=== PATIENT | male | born 1955 | race African-American/Black ===

== ENCOUNTER 2022-04-16 12:11 | Emergency (ER) | payer OTHER, SELFPAY ==
[2022-04-16] VITALS (18 sets, daily range): BP systolic 152–247; BP diastolic 61–165; PULSE 50–75; RESP 15–21; TEMP 36.4; O2SAT 99–100
--- NOTE | ~2022-04-16 | CT_ITS ---
EXAMINATION: CTA chest abdomen pelvis DATE: 04/16/2022 12:51 INDICATION: Back and abdominal pain. TECHNIQUE: Computed tomographic angiography (CTA) of the chest and abdomen was performed with 100 cc of Omnipaque-350 intravenous contrast. Additional 3D reconstructions utilizing rotating maximum inten sity projection (MIP) were performed. Automated exposure control and iterative reconstruction [employer] were employed. The dose-length product was 1850.17 mGy-cm. COMPARISON: None FINDINGS: Chest: Incidental azygos lobe and fissure at the medial right upper lung. Respiratory motion in both lungs w ith mild dependent atelectasis. No pneumonia, pulmonary edema, pleural effusion or pneumothorax. Mild cardiomegaly. Atherosclerotic coronary artery calcific lesion. No pericardial effusion. No pathologi zuleima enlarged thoracic lymphadenopathy. Mild aneurysmal dilation of the ascending thoracic aorta wh ich measures up to 4.2 cm maximal diameter. The aorta tapers to 4.1 cm at the distal side of the aort ic arch and further tapering to 3.8 cm in the mid thoracic aorta. There is a type B aortic dissection beginning along the distal margin of the takeoff of the left subclavian artery and which extends int o the abdomen. Mild thoracic dextrocurvature with mild spondylosis and bridging osteophytes at multip le levels consistent with diffuse idiopathic skeletal hyperostosis (DISH). Reverse right total should er arthroplasty. Abdomen and pelvis: The aortic dissection extends throughout the abdominal aorta and into the bilateral external and inte rnal iliac arteries as well as the left renal artery. Large fenestration with discontinuities of the intimal flap at the level of the celiac axis and superior mesenteric arteries. There is thrombosis of what appears to be the true lumen of the left renal artery with tiny patent false lumen which contin ues to supply portions of the left kidney. There is however extensive infarct of the left kidney whic h appears to involve approximately two thirds of the renal parenchymal volume. Both the celiac axis a nd superior mesenteric artery are well opacified with contrast and arise from the false lumen. The ri ght renal artery which is also widely patent and arises from the true lumen. There is segmental compl ete thrombosis of approximately 2.5 cm length of the proximal left internal iliac artery which subseq uently reconstitutes via collaterals. Liver, gallbladder, spleen, pancreas and bilateral adrenal glands are normal. 1.1 cm right renal cyst . There are few scattered colonic diverticula without adjacent inflammatory change to suggest diverti culitis. No bowel obstruction. Bladder is normal. Prostatomegaly measuring 6.3 x 3.9 cm. No free intr aperitoneal gas or fluid. No pathologically enlarged abdominal or pelvic lymphadenopathy. Mild to mod erate lumbar spondylosis. Ankylosis at the bilateral sacroiliac joints. IMPRESSION: 1. Type B aortic dissection arising at the distal arch following the takeoff of the left subclavian a rtery and extending inferiorly into the bilateral external and internal iliac arteries. 2. Dissection extends into the left renal artery which is partially thrombosed and with secondary lef t renal involving approximately two thirds of the renal parenchymal volume. This and the above findin gs were discussed with Dr. Oliveira at 1:00 PM. 3. Complete occlusion of a short segment of the left internal iliac artery which subsequently reconst itutes via collaterals. 4. Mild ascending thoracic aortic aneurysm measuring up to 4.2 cm. 5. cardiomegaly. 6. Prostatomegaly. 7. Mild diverticulosis. Reviewed, dictated and finalized at location A.
--- NOTE | ~2022-04-16 | XR_ITS ---
EXAMINATION: XR chest 1V portable DATE: 04/16/2022 13:12 INDICATION: Chest pain. TECHNIQUE: A single frontal view of the chest was obtained on 2 radiographs. COMPARISON: Chest CT 04/16/2022 FINDINGS: There is mild atelectasis in right lung. No pleural effusion or pneumothorax. The heart siz e is normal. There are changes of right shoulder arthroplasty. IMPRESSION: 1. Mild atelectasis in right lung. Reviewed, dictated and finalized at location B.
--- NOTE | 2022-04-16 12:13 | ECG_ITS ---
Measurements Intervals [place] Rate: 53 P: ME: 0 QRS: 18 QRSD: 98 T: 38 QT: 473 QTc: 447 Interpretive Statements SINUS BRADYCARDIA WITH INTERMITTENT FIRST-DEGREE AV BLOCK POSSIBLE LEFT VENTRICULAR HYPERTROPHY [VOLTAGE CRITERIA PLUS LAE OR QRS WIDENING] ABNORMAL ECG NO PREVIOUS ECG AVAILABLE FOR COMPARISON Electronically Signed On 04-16-2022 14:13:06 CDT by Anthony Aaron M.D.
[2022-04-16] MEDS: MORPHINE SULFATE (*CRX) 4 MG/ML INJ (12:22)
[2022-04-16] MEDS: MORPHINE SULFATE (*CRX) 2 MG/ML INJ (12:23)
[2022-04-16] MEDS: hydrALAZINE HCL 20 MG/ML VIAL 10 MG IV PUSH (12:25)
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
[2022-04-16 12:35] LABS: Basophils Absolute Auto 0.1 K/mm3 (0.0-0.1); Basophils Percent Auto 0.8 % (0.2-1.2); Eosinophils Absolute Auto 0.4 K/mm3 (0-0.3); Eosinophils Percent Auto 4.2 % (0-4.4); Hematocrit 42.2 % (42.0-52.0); Hemoglobin 14.3 g/dL (14.0-18.0); Lymphocytes Absolute Auto 4.59 K/mm3 (0.9-3.2); Lymphocytes Percent Auto 45.6 % (18.3-44.2); Mean Corpuscular HGB Conc 33.9 g/dl (32-36); Mean Corpuscular Hemoglobin 32.9 pg (26-34); Mean Platelet Volume 10.4 fl (7.4-10.4); Monocytes Absolute Auto 0.9 K/mm3 (0.1-0.6); Monocytes Percent Auto 9.1 % (2.6-8.5); Neutrophils Percent Auto 39.3 % (45.5-73.1); Platelet Count Result 166 k/mm3 (150-375); Red Blood Count 4.35 M/mm3 (4.6-6.20); Red Cell Distribution Width 12.6 % (11.5-14.5); White Blood Count 10.1 K/mm3 (4.5-10.0)
[2022-04-16] MEDS: NITROGLYCERIN OINTMENT 1 INCH DOSE TRANSDERM (12:35)
[2022-04-16] MEDS: NITROGLYCERIN SL 0.4 MG TABLET SUBLINGUAL (12:35)
[2022-04-16] MEDS: diphenhydrAMINE HCl INJ 50 MG/ML VIAL IV PUSH (12:39)
[2022-04-16] MEDS: HYDROCORTISONE SODIUM SUCCINATE 100 MG/2 ML VIAL 200 MG IV PUSH (12:39)
[2022-04-16 12:45] LABS: Alanine Aminotransferase 61 U/L (6-50); Albumin Level 4.4 g/dL (3.5-5.1); Alkaline Phosphatase 94 U/L (38-126); Anion Gap 15 mmol/L (8-16); Aspartate Amino Transferase 66 U/L (17-59); Bilirubin,Total 0.7 mg/dL (0.2-1.3); Blood Urea Nitrogen 18 mg/dL (9-20); Calcium 9.4 mg/dL (8.4-10.2); Carbon Dioxide 21 mmol/L (22-30); Chloride 108 mmol/L (98-107); Estimated CRCL calculation 61 ml/min; Estimated Glomerular Filt Rate 55; Glucose 141 mg/dL (65-110); Lipase 128 U/L (23-300); Potassium 3.4 mmol/L (3.4-5.0); Sodium 144 mmol/L (137-145)
[2022-04-16] MEDS: niCARdipine 20 MG/200 ML 20 MG/200 ML BAG 50 MG IV CONT (12:55)
--- NOTE | 2022-04-16 12:56 | PC.NURSE ---
called family to be taken back to room. no answer
[2022-04-16 12:57] LABS: Troponin I < 0.012 ng/mL (0.000-0.034)
[2022-04-16] MEDS: ONDANSETRON INJ 4 MG/2 ML VIAL (13:07)
--- NOTE | 2022-04-16 13:07 | PC.NURSE ---
pt actively vomiting. family and pt notified of ct results. transfer in progress.
--- NOTE | 2022-04-16 13:09 | PC.NURSE ---
zofran given for vomiting.
[2022-04-16] MEDS: niCARdipine 20 MG/200 ML 20 MG/200 ML BAG 125 MG IV CONT (13:20)
== END 2022-04-16 14:12 | disposition short-term general hospital (02) ==
PROVIDERS: Emergency Medicine; Emergency Provider Preventive Medicine Aerospace Medicine
DX: I71.010 Dissection of ascending aorta (principal); R10.9 Unspecified abdominal pain; M54.9 Dorsalgia, unspecified; R00.1 Bradycardia, unspecified; I44.0 Atrioventricular block, first degree; R94.31 Abnormal electrocardiogram [ECG] [EKG]
CPT/HCPCS: 36415; 71045; 71275; 74174; 80053; 83690; 84484; 85025; 93005; 96374; 96375; 96376; 99285; A9270; J0360; J1200; J1720; J2270; J2405; Q9967